=== PATIENT | female | born 1970 | race Hispanic/Latino ===

== ENCOUNTER 2017-02-16 08:49 | Emergency (ER) | payer MEDICAID ==
[2017-02-16 08:54] VITALS: BMI 34.0
[2017-02-16] MEDS ORDERED: Sodium Chloride 0.9% 1,000 ML IV ONE (09:29)
--- NOTE | 2017-02-16 09:29 | C.PDOC ---
History Of Present Illness 46 y/o female, history of GERD, presents to ED with c/o epigastric abdominal pain for 2 days. Patient describes pain as sharp and non-radiating. Patient reports last bowel movement was 2 days ago. Patient states has not taken anything for current pain, and stopped taking GERD medication because it was not helping. Denies fever, chills, nausea, vomiting, diarrhea, urinary symptoms , or other associated symptoms. Time Seen by Provider: 02/16/17 09:11 Chief Complaint (Nursing): Abdominal Pain History Per: Patient History/Exam Limitations: no limitations Onset/Duration Of Symptoms: Days (2) Current Symptoms Are (Timing): Still Present Radiation Of Pain To:: None Quality Of Discomfort: Sharp, Stabbing, "Pain" Associated Symptoms: denies: Fever, Chills, Nausea, Vomiting, Diarrhea, Urinary Symptoms Recent travel outside of the [place]: No Abnormal Vaginal Bleeding: No Past Medical History Reviewed: Historical Data, Nursing Documentation, Vital Signs Vital Signs: Last Vital Signs Temp 98.3 F 02/16/17 11:16 Pulse 78 02/16/17 11:16 Resp 18 02/16/17 11:16 BP 148/86 02/16/17 11:16 Pulse Ox 98 02/16/17 12:41 - Medical History PMH: GERD, HTN Surgical History: No Surg Hx Family History: States: Unknown Family Hx - Social History Hx Alcohol Use: Yes Hx Substance Use: No - Immunization History Hx Influenza Vaccination: No Review Of Systems Except As Marked, All Systems Reviewed And Found Negative. Constitutional: Negative for: Fever, Chills Cardiovascular: Negative for: Chest Pain Respiratory: Negative for: Cough, Shortness of Breath Gastrointestinal: Positive for: Abdominal Pain. Negative for: Nausea, Vomiting , Diarrhea Genitourinary: Negative for: Dysuria Skin: Negative for: Rash Physical Exam - Physical Exam Appears: Non-toxic, No Acute Distress Skin: Normal Color, Warm, Dry Head: Atraumatic, Normacephalic Eye(s): bilateral: Normal Inspection, EOMI Oral Mucosa: Moist Neck: Normal ROM Chest: Symmetrical Cardiovascular: Rhythm Regular Respiratory: Normal Breath Sounds, No Rales, No Rhonchi, No Wheezing Gastrointestinal/Abdominal: Bowel Sounds (active), Soft, Tenderness (epigastric) , No Mass, No Distention, No Guarding, No Rebound, No Hernia Back: Normal Inspection, No CVA Tenderness Extremity: Bilateral: Atraumatic, No Pedal Edema, Normal Color And Temperature, Normal ROM Neurological/Psych: Oriented x3, Normal Speech Gait: Steady ED Course And Treatment - Laboratory Results Result Diagrams: 02/16/17 09:50 02/16/17 09:50 Lab Interpretation: No Acute Changes O2 Sat by Pulse Oximetry: 98 (RA) Pulse Ox Interpretation: Normal - CT Scan/US US Abdomen Other Rad Studies (CT/US): Read By Radiologist, Radiology Report Reviewed CT/US Interpretation: HISTORY: upper abd pain, epigastric and RUQ. COMPARISON : None available. TECHNIQUE: Sonographic evaluation of the abdomen. FINDINGS : LIVER: Measures 18.9 cm in sagittal dimension. Echogenic liver may be seen in setting of hepatic parenchymal dis send ease or fatty infiltration. No focal hepatic mass identified. The main portal vein appears patent with normal directional flow. No intrahepatic bile duct dilatation. GALLBLADDER: No gallstones. No gallbladder wall thickening. Negative sonographic Yap's sign as assessed by the crew person. COMMON BILE DUCT: Measures 3 mm. No stones. No dilatation. PANCREAS: Not well visualized. RIGHT KIDNEY: Measures 12.7 x 4.7 x 5.2cm. No obstructing calculus or hydronephrosis identified. LEFT KIDNEY : Measures 11.4 x 6.3 x 5.9cm. No obstructing calculus or hydronephrosis identified. SPLEEN: Measures approximately 13.9 cm. AORTA: Limited views appear unremarkable. IVC: Limited views appear unremarkable. OTHER FINDINGS: None. IMPRESSION: Borderline hepatomegaly. Echogenic liver may be seen in setting of hepatic parenchymal disease or fatty infiltration. Medical Decision Making Medical Decision Making: Impression: Upper abdominal pain Plan: * Pepcid, Toradol, IV fluids. * Labs, US abdomen * Reassess Progress: Labs reviewed, no acute findings. US shows borderline hepatomegaly. No gallstones or other acute pathology. On re-evaluation, patient is resting comfortably, abdomen remains soft, and patient is tolerating PO. Patient feels comfortable going home. Copies of labs and US report given to kev. Patient will be discharged home and advised to f /u with PMD/clinic/ GI doctor Disposition Counseled Patient/Family Regarding: Diagnosis, Need For Followup, Rx Given - Disposition Referrals: No Hoffman [Staff Provider] - Disposition: HOME/ ROUTINE Disposition Time: 11:08 Condition: IMPROVED Additional Instructions: Your labs and ultrasound were normal Please take pain medication as needed twice daily Follow up with GI doctor for further evaluation Prescriptions: Ranitidine HCl [Zantac] 150 mg PO BID PRN #30 tablet PRN Reason: Gi Distress Instructions: Gastritis (DC) Forms: [employer] (Filipino) - POA Present On Arrival: None - Clinical Impression Clinical Impression: Gastritis, Upper abdominal pain - PA / CHEF INSTRUCTOR / Resident Statement MD/DO has reviewed & agrees with the documentation as recorded. - Scribe Statement The provider has reviewed the documentation as recorded by the Dewayne Graf All medical record entries made by the Dewayne were at my direction and personally dictated by me. I have reviewed the chart and agree that the record accurately reflects my personal performance of the history, physical exam, medical decision making, and the department course for this patient. I have also personally directed, reviewed, and agree with the discharge instructions and disposition.
[2017-02-16 09:34] LABS: RBC URINE 1223 /hpf (0-3); URINE BILIRUBIN NEGATIVE (NEGATIVE); URINE BLOOD 3+ (NEGATIVE); URINE COLOR Yellow (YELLOW); URINE GLUCOSE (UA) NORMAL (Normal); URINE KETONE NEGATIVE (NEGATIVE); URINE LEUKOCYTE ESTERASE NEG Leu/uL (Negative); URINE PROTEIN NEGATIVE (NEGATIVE); URINE UROBILINOGEN NORMAL mg/dL (0.2-1.0); WBC URINE 4 /hpf (0-5)
[2017-02-16] MEDS ORDERED: Sodium Chloride 0.9% 1,000 ML ONE (09:39)
[2017-02-16 09:54] LABS: BASO # 0.1 K/uL (0.0-0.2); BASO % 0.5 % (0.0-2.0); EOS # 0.1 K/uL (0.0-0.7); HEMATOCRIT 40.8 % (34.0-47.0); LYMPH # 2.1 K/uL (1.0-4.3); LYMPH % 17.1 % (20.0-40.0); MEAN CELL VOLUME 81.5 fL (81.0-99.0); MEAN CORPUSCULAR HEMOGLOBIN 28.2 pg (27.0-31.0); MEAN CORPUSCULAR HGB CONC 34.6 g/dL (33.0-37.0); MEAN PLATELET VOLUME 8.5 fL (7.2-11.7); MONO # 0.6 K/uL (0.0-0.8); MONO % 4.6 % (0.0-10.0); NRBC % 0.1 % (0.0-2.0); RED CELL DISTRIBUTION WIDTH 13.3 % (11.5-14.5); WHITE BLOOD COUNT 12.5 K/uL (4.8-10.8)
[2017-02-16 10:09] LABS: CHLORIDE 104 mmol/L (98-107)
[2017-02-16 10:10] LABS: POTASSIUM 4.1 mmol/L (3.6-5.2); SODIUM 139 mmol/L (132-148)
[2017-02-16 10:12] LABS: GFR AFRICAN-AMERICAN > 60
[2017-02-16 10:13] LABS: ALB/GLOB RATIO 1.3 (1.0-2.1); ALKALINE PHOSPHATASE 93 U/L (38-126); ALT/SGPT 30 U/L (9-52); AST/SGOT 20 U/L (14-36); BILIRUBIN,TOTAL 1.6 mg/dL (0.2-1.3); BLOOD UREA NITROGEN 10 mg/dL (7-17); CALCIUM 8.7 mg/dl (8.6-10.4); CARBON DIOXIDE 25 mmol/L (22-30); GLUCOSE,RANDOM 76 mg/dL (65-105); TOTAL PROTEIN 7.2 g/dL (6.3-8.3)
--- NOTE | 2017-02-16 10:42 | US ---
HISTORY: upper abd pain, epigastric and RUQ COMPARISON: None available. TECHNIQUE: Sonographic evaluation of the abdomen. FINDINGS: LIVER: Measures 18.9 cm in sagittal dimension. Echogenic liver may be seen in setting of hepatic parenchymal dis send ease or fatty infiltration. No focal hepatic mass identified. The main portal vein appears patent with normal directional flow. No intrahepatic bile duct dilatation. GALLBLADDER: No gallstones. No gallbladder wall thickening. Negative sonographic Yap's sign as assessed by the irish moss bleacher. COMMON BILE DUCT: Measures 3 mm. No stones. No dilatation. PANCREAS: Not well visualized. RIGHT KIDNEY: Measures 12.7 x 4.7 x 5.2cm. No obstructing calculus or hydronephrosis identified. LEFT KIDNEY: Measures 11.4 x 6.3 x 5.9cm. No obstructing calculus or hydronephrosis identified. SPLEEN: Measures approximately 13.9 cm. AORTA: Limited views appear unremarkable. IVC: Limited views appear unremarkable. OTHER FINDINGS: None. IMPRESSION: Borderline hepatomegaly. Echogenic liver may be seen in setting of hepatic parenchymal disease or fatty infiltration.
[2017-02-16 11:17] VITALS: BP 148/86; PULSE 78; RESP 18; TEMP 98.3
[2017-02-16 12:41] VITALS: O2SAT 98
== END 2017-02-16 11:18 | disposition home or self-care (01) ==
LOC: C.ER 08:49
DX: K29.70 Gastritis, unspecified, without bleeding (principal); R10.13 Epigastric pain
CPT/HCPCS: 76700; 80053; 81001; 83690; 84703; 85025; 96361; 96374; 96375; 99285; J1885; J7040